=== PATIENT | female | born 1955 | race Caucasian/White ===

== ENCOUNTER → 2021-03-04 | Outpatient (CLI) | payer OTHER ==
[~2021-03-04] MED LIST: ASPIRIN81 MG PO; AZELASTINE137 MCG/0.; BACLOFEN10 MG PO; BUSPIRONE HCL7.5 MG PO; CETIRIZINE HCL10 MG PO; CLONAZEPAM0.25 MG PO; COZAAR 50MG TAB50 MG GT; COZAAR50 MG PO; CYMBALTA30 MG PO; DULOXETINE HCL60 MG PO; ELIQUIS5 MG PO; ESOMEPRAZOLE MA20 MG PO; FUROSEMIDE20 MG PO; LEVOTHYROXINE112 MCG PO; LEXAPRO20 MG PO; MELOXICAM7.5 MG PO; METOPROLOL SUCC25 MG PO; NITROGLYCERIN0.4 MG SL; OXYBUTYNIN CHLOR5 MG PO; POTASSIUM CHLO20 ME2 PO; PRIMIDONE50 MG PO; PROTONIX40 MG PO; Q-SORB CO Q-10100 MG PO; SINGULAIR10 MG PO; SPIRIVA PO; VITAMIN D21250 MCG PO; ZOCOR40 MG PO
== END ==
LOC: KOH-I 10:57
DX: M21.611 Bunion of right foot (principal); M20.5X1 Other deformities of toe(s) (acquired), right foot; M19.071 Primary osteoarthritis, right ankle and foot
CPT/HCPCS: 73610; 73630

== ENCOUNTER → 2021-03-15 | Outpatient (CLI) | payer OTHER | LOC: KOH-I 11:30 | DX: Z01.818 Encounter for other preprocedural examination (principal) | CPT/HCPCS: 93926 ==

== ENCOUNTER → 2021-04-11 | Outpatient (CLI) | payer OTHER ==
[2021-04-11 12:49] LABS: HEMOGLOBIN 13.5 gm/dl (12.3-15.3); RED BLOOD COUNT 4.74 M/UL (4.00-5.10); WHITE BLOOD COUNT 8.2 K/UL (4.5-11.0)
[2021-04-11 14:00] LABS: BUN/CREATININE RATIO 11 (0-10)
== END ==
LOC: OPSV2 11:00
PROVIDERS: Podiatrist Foot & Ankle Surgery
DX: Z01.818 Encounter for other preprocedural examination (principal); M21.611 Bunion of right foot; M20.41 Other hammer toe(s) (acquired), right foot; M24.874 Other specific joint derangements of right foot, not elsewhere classified
CPT/HCPCS: 36415; 80048; 85027; 93005

== ENCOUNTER → 2021-04-17 | Day surgery (SDC) | payer OTHER ==
[~2021-04-17] VITALS: Ht 147.3 cm; Wt 99.8 kg
== END | disposition home or self-care (01) ==
LOC: OR 07:45
DX: M20.11 Hallux valgus (acquired), right foot (principal); M20.41 Other hammer toe(s) (acquired), right foot; M19.071 Primary osteoarthritis, right ankle and foot; M24.574 Contracture, right foot; M20.5X1 Other deformities of toe(s) (acquired), right foot; I10 Essential (primary) hypertension; M19.90 Unspecified osteoarthritis, unspecified site; F41.8 Other specified anxiety disorders; E03.9 Hypothyroidism, unspecified; E78.5 Hyperlipidemia, unspecified; J44.9 Chronic obstructive pulmonary disease, unspecified; K21.9 Gastro-esophageal reflux disease without esophagitis; Z88.6 Allergy status to analgesic agent; Z79.82 Long term (current) use of aspirin; Z79.899 Other long term (current) drug therapy
CPT/HCPCS: 73630; 76000; C1713; C1776; J0690; J1100; J2250; J2405; J2704; J2795; J3010; J3370; J7040; J7120; Q4133

== ENCOUNTER → 2021-05-02 | Outpatient (CLI) | payer OTHER | LOC: KOH-I 14:31 | DX: M79.671 Pain in right foot (principal); M77.8 Other enthesopathies, not elsewhere classified | CPT/HCPCS: 73630 ==

== ENCOUNTER → 2021-05-21 | Outpatient (CLI) | payer OTHER | LOC: KOH-I 15:31 | DX: M21.611 Bunion of right foot (principal); M79.671 Pain in right foot | CPT/HCPCS: 73630 ==

== ENCOUNTER → 2021-06-06 | Outpatient (CLI) | payer OTHER | LOC: KOH-I 14:36 | DX: M21.611 Bunion of right foot (principal); M19.071 Primary osteoarthritis, right ankle and foot; M85.871 Other specified disorders of bone density and structure, right ankle and foot | CPT/HCPCS: 73630 ==

== ENCOUNTER → 2021-07-02 | Outpatient (CLI) | payer OTHER | LOC: KOH-I 12:19 | DX: M21.611 Bunion of right foot (principal); M79.671 Pain in right foot; Z98.890 Other specified postprocedural states | CPT/HCPCS: 73630 ==

== ENCOUNTER → 2022-01-06 | Outpatient (CLI) | payer OTHER | LOC: KOH-I 14:02 | DX: M79.671 Pain in right foot (principal); M79.672 Pain in left foot; M21.611 Bunion of right foot; M21.612 Bunion of left foot; M19.072 Primary osteoarthritis, left ankle and foot; Z98.890 Other specified postprocedural states | CPT/HCPCS: 73630 ==